=== PATIENT | male | born 1980 | race Caucasian/White ===

== ENCOUNTER → 2017-10-18 13:27 | Outpatient (REF) | payer OTHER, SELFPAY ==
[2017-10-18 15:25] LABS: Cholesterol 179 mg/dL (140-199); Glucose Promotional 100 mg/dL (70-100); HDL Cholesterol 83 mg/dL (40-60); LDL Cholesterol Calculated 69 mg/dL (<100); Triglycerides 135 mg/dL (35-150)
== END ==
LOC: LAB 13:27
PROVIDERS: Family Provider Family Medicine; PCP Family Medicine
DX: Z13.1 Encounter for screening for diabetes mellitus (principal); Z13.220 Encounter for screening for lipoid disorders
CPT/HCPCS: 80061; 82947

== ENCOUNTER → 2017-12-01 07:26 | Outpatient (CLI) | payer OTHER, SELFPAY ==
[2017-12-01 09:53] LABS: Cholesterol 198 mg/dL (140-199); HDL Cholesterol 78 mg/dL (40-60); LDL Cholesterol Calculated 79 mg/dL (<100); Triglycerides 207 mg/dL (35-150)
== END ==
PROVIDERS: Visit Provider Internal Medicine
DX: Z00.00 Encounter for general adult medical examination without abnormal findings (principal)
CPT/HCPCS: 36415; 80061

== ENCOUNTER 2018-01-14 09:54 | Emergency (ER) | payer OTHER, SELFPAY ==
[2018-01-14 10:13] VITALS: BP 150/101; PULSE 97; RESP 18; TEMP 36.8; O2SAT 92; BMI 22.5
--- NOTE | 2018-01-14 10:25 | ED.EXTPRO ---
HPI - Extremity Problem General Chief complaint: Extremity Problem,Nontraumatic Stated complaint: lt ankle swelling,mild pain Time Seen by Provider: 01/14/18 09:59 Source: patient Mode of arrival: ambulatory Limitations: no limitations History of Present Illness HPI Narrative: 37-year-old nonsmoker presents with chief complaint of a small tender swollen ?knot? in his posterior left lower extremity. The patient has a longstanding history of varicose veins and recently had laser treatment and was encouraged to present to the emergency department under the circumstances of increased swelling or pain. The patient denies any redness, warmth or fever. He denies any chest pain or shortness of breath. MD Complaint: extremity pain and extremity swelling Onset (ago): day(s) Pain Consistency: constant Location: left Quality: aching Radiation: none Relieving factors: nothing Exacerbating factors: nothing Associated symptoms: denies other symptoms Related Data Previous Rx's Medication Instructions Recorded epinephrine [EpiPen 2-Gonsalo] 0.3 mg IM SEE INSTRUCTIONS #1 kit 01/06/17 lisinopril 10 mg PO QDAY #90 tab 06/22/17 Allergies Allergy/AdvReac Type Severity Reaction Status Date / Time azithromycin [From ZITHROMAX] Allergy Mild RASH Verified 01/14/18 10:22 venom-honey bee Allergy Mild Verified 01/14/18 10:22 [BEE VENOM (HONEY BEE)] Review of Systems Review of Systems All systems reviewed & are unremarkable except as noted in HPI and below Constitutional Denies chills, Denies fever(s), Denies lethargy and Denies weakness Eyes Denies change in vision, Denies eye discharge, Denies irritation and Denies loss of vision ENT Ears, Nose, Mouth, and Throat: Denies change in voice, Denies neck pain and Denies sore throat Cardiovascular Denies chest pain, Denies irregular heart rhythm, Denies lightheadedness, Denies palpitations, Denies dyspnea, Denies dyspnea on exertion and Denies orthopnea Respiratory Denies cough, Denies dyspnea, Denies dyspnea on exertion and Denies wheezing Gastrointestinal Gastrointestinal: Denies abdominal pain, Denies change in bowel habits, Denies diarrhea, Denies nausea and Denies vomiting Genitourinary Denies hematuria, Denies flank pain, Denies urinary incontinence and Denies urinary urgency Musculoskeletal Reports system reviewed and no additional complaints, except as docu and Denies neck pain Integumentary/Breasts Reports system reviewed and no additional complaints, except as docu, Denies pruritus, Denies erythema, Denies rash and Denies wounds Neurologic Denies confusion, Denies loss of vision and Denies weakness Psychiatric Denies anxiety, Denies confusion, Denies depression, Denies homicidal ideation and Denies suicidal ideation Endocrine Denies palpitations Hematologic/Lymphatic Denies easy bruising Allergic/Immunologic Denies wheezing [facility] Medical History History of varicose veins (Chronic) Hypertension (Chronic 2016) Ocular hypertension (Chronic 2011) Scoliosis (Chronic ~1988) Plantar warts (Resolved 2014) Surgical History Anesthesia (Resolved) History of ankle surgery (Resolved) History of vasectomy (Resolved 07/02/11) Family History Father Pancreatic cancer Grandfather No problems noted. Grandmother No problems noted. Mother No problems noted. Grandfather No problems noted. Sister No problems noted. Social History Smoking Status: Former smoker Exam Narrative Exam Narrative: GEN: AOx3 and in mild distress EYES: Pupils are equal, round, and reactive to light and accommodation. Extraoccular muscles are intact bilaterally. There is no subconjunctival hemorrhage or exudate. CHEST: Lungs are clear to auscultation bilaterally and free of wheezes, rales, or rhonchi. Heart rate is regular rhythm, there are no murmurs, clicks, rubs, or gallops. There is no chest wall tenderness. ABD: Abdomen is soft and nontender. There is no guarding or rebound. Bowel sounds are normal in all 4 quadrants. There is no mass or organomegaly. EXT: Small area of tenderness and swelling on posterior left lower extremity. It is perhaps 2 cm in length and feels rope like, consistent with superficial thrombophlebitis or thrombosed varicosity. There is no redness, warmth or swelling consistent with DVT Full painless ROM of all extremities with no loss of sensation or strength. SKIN: Warm, pink, and dry. No erythema or rash Initial Vital Signs Initial Vital Signs: Vital Signs Temperature 98.2 F 01/14/18 10:13 Pulse Rate 97 H 01/14/18 10:13 Respiratory Rate 18 01/14/18 10:13 Blood Pressure 150/101 H 01/14/18 10:13 Pulse Oximetry 92 01/14/18 10:13 Course Vital Signs - 8 hr 01/14/18 12:33 Pulse Rate 74 Respiratory Rate 16 Blood Pressure [Left Arm] 121/91 H Pulse Oximetry 98 MDM - Extremity (Nontraumatic) Imaging Data Venous US: Radiologist's impression: [address] [address] Ultrasound Report Signed Patient: Darrel Richard LMR#: [id number] : 1980Acct:[id number] Age/Sex: 37 / MDate of Service: 01/14/18 Loc: ED Accession Number: [id number] Procedure: US periph venous low extrem lt Ordering Provider: Clinton Lopez D.O. PROCEDURE: US PERIPH VENOUS LOW EXTREM LT INDICATIONS: pain, swelling, hx varicosities TECHNIQUE: Real-time imaging, as well as color and pulse Doppler interrogation, were performed of the lower extremity deep veins from the inguinal ligament to the popliteal fossa. COMPARISON: None. FINDINGS: The deep veins are normally compressible, and free of intraluminal thrombus. Color and pulse Doppler demonstrate normal phasic intraluminal flow. There is normal augmentation response to distal compression maneuver. Incidental note made of a thrombosed superficial venous varicosity. IMPRESSION: 1. No evidence of deep vein thrombosis involving the left lower extremity. 2. Thrombosed venous varicosity in the superficial system corresponds to clinically palpable lump. Dictated by: Estephania Piña MD, PhD on 01/14/2018 at 11:40 Approved by: Estephania Piña MD, PhD on 01/14/2018 at 11:40 Discharge Plan Departure Patient Disposition: Home Clinical Impression: Superficial thrombosis of leg Discharge Date/Time: 01/14/18 12:52 Interventions: ED Discharge Assessment Last Done: 01/14/18 12:51 Instructions: Phlebitis/DVT (Alternative Therapy) Activity Restrictions/Additional Instructions: *You have been diagnosed with [superficial thrombosed varicosity left leg ] *What to do: *continue to take medications as directed *warm compresses to swollen area can help the thrombosed varicosity resolve *Follow up with your primary care provider in 2-3 days, call for an appointment. Let them know you were seen in the Emergency Department and that we ask that you be seen in follow up *Return to ER if you should have any new, worsening or concerning symptoms Prescriptions: No Action epinephrine [EpiPen 2-Gonsalo] 0.3 MG/0.3 ML auto-injector 0.3 mg IM SEE INSTRUCTIONS Qty: 1 RF: 5 lisinopril 10 MG tablet 10 mg PO QDAY Qty: 90 RF: 3
[2018-01-14 10:27] VITALS: PULSE 92
--- NOTE | 2018-01-14 10:33 | ED_ITS ---
HPI - Extremity Problem General Chief complaint: Extremity Problem,Nontraumatic Stated complaint: lt ankle swelling,mild pain Time Seen by Provider: 01/14/18 09:59 Source: patient Mode of arrival: ambulatory Limitations: no limitations History of Present Illness HPI Narrative: 37-year-old nonsmoker presents with chief complaint of a small tender swollen ?knot? in his posterior left lower extremity. The patient has a longstanding history of varicose veins and recently had laser treatment and was encouraged to present to the emergency department under the circumstances of increased swelling or pain. The patient denies any redness, warmth or fever. He denies any chest pain or shortness of breath. MD Complaint: extremity pain and extremity swelling Onset (ago): day(s) Pain Consistency: constant Location: left Quality: aching Radiation: none Relieving factors: nothing Exacerbating factors: nothing Associated symptoms: denies other symptoms Related Data Previous Rx's Medication Instructions Recorded epinephrine [EpiPen 2-Gonsalo] 0.3 mg IM SEE INSTRUCTIONS #1 kit 01/06/17 lisinopril 10 mg PO QDAY #90 tab 06/22/17 Allergies Allergy/AdvReac Type Severity Reaction Status Date / Time azithromycin [From ZITHROMAX] Allergy Mild RASH Verified 01/14/18 10:22 venom-honey bee Allergy Mild Verified 01/14/18 10:22 [BEE VENOM (HONEY BEE)] Review of Systems Review of Systems All systems reviewed & are unremarkable except as noted in HPI and below Constitutional Denies chills, Denies fever(s), Denies lethargy and Denies weakness Eyes Denies change in vision, Denies eye discharge, Denies irritation and Denies loss of vision ENT Ears, Nose, Mouth, and Throat: Denies change in voice, Denies neck pain and Denies sore throat Cardiovascular Denies chest pain, Denies irregular heart rhythm, Denies lightheadedness, Denies palpitations, Denies dyspnea, Denies dyspnea on exertion and Denies orthopnea Respiratory Denies cough, Denies dyspnea, Denies dyspnea on exertion and Denies wheezing Gastrointestinal Gastrointestinal: Denies abdominal pain, Denies change in bowel habits, Denies diarrhea, Denies nausea and Denies vomiting Genitourinary Denies hematuria, Denies flank pain, Denies urinary incontinence and Denies urinary urgency Musculoskeletal Reports system reviewed and no additional complaints, except as docu and Denies neck pain Integumentary/Breasts Reports system reviewed and no additional complaints, except as docu, Denies pruritus, Denies erythema, Denies rash and Denies wounds Neurologic Denies confusion, Denies loss of vision and Denies weakness Psychiatric Denies anxiety, Denies confusion, Denies depression, Denies homicidal ideation and Denies suicidal ideation Endocrine Denies palpitations Hematologic/Lymphatic Denies easy bruising Allergic/Immunologic Denies wheezing [facility], [facility] Medical History History of varicose veins (Chronic) Hypertension (Chronic 2016) Ocular hypertension (Chronic 2011) Scoliosis (Chronic ~1988) Plantar warts (Resolved 2014) Surgical History Anesthesia (Resolved) History of ankle surgery (Resolved) History of vasectomy (Resolved 07/02/11) Family History Father Pancreatic cancer Grandfather No problems noted. Grandmother No problems noted. Mother No problems noted. Grandfather No problems noted. Sister No problems noted. Social History Smoking Status: Former smoker Exam Narrative Exam Narrative: GEN: AOx3 and in mild distress EYES: Pupils are equal, round, and reactive to light and accommodation. Extraoccular muscles are intact bilaterally. There is no subconjunctival hemorrhage or exudate. CHEST: Lungs are clear to auscultation bilaterally and free of wheezes, rales, or rhonchi. Heart rate is regular rhythm, there are no murmurs, clicks, rubs, or gallops. There is no chest wall tenderness. ABD: Abdomen is soft and nontender. There is no guarding or rebound. Bowel sounds are normal in all 4 quadrants. There is no mass or organomegaly. EXT: Small area of tenderness and swelling on posterior left lower extremity. It is perhaps 2 cm in length and feels rope like, consistent with superficial thrombophlebitis or thrombosed varicosity. There is no redness, warmth or swelling consistent with DVT Full painless ROM of all extremities with no loss of sensation or strength. SKIN: Warm, pink, and dry. No erythema or rash Initial Vital Signs Initial Vital Signs: Vital Signs Temperature 98.2 F 01/14/18 10:13 Pulse Rate 97 H 01/14/18 10:13 Respiratory Rate 18 01/14/18 10:13 Blood Pressure 150/101 H 01/14/18 10:13 Pulse Oximetry 92 01/14/18 10:13 Course Vital Signs - 8 hr 01/14/18 12:33 Pulse Rate 74 Respiratory Rate 16 Blood Pressure [Left Arm] 121/91 H Pulse Oximetry 98 MDM - Extremity (Nontraumatic) Imaging Data Venous US: Radiologist's impression: [address] [address] Ultrasound Report Signed Patient: Darrel Richard LMR#: [id number] : 1980Acct:[id number] Age/Sex: 37 / MDate of Service: 01/14/18 Loc: ED Accession Number: [id number] Procedure: US periph venous low extrem lt Ordering Provider: Clinton Lopez D.O. PROCEDURE: US PERIPH VENOUS LOW EXTREM LT INDICATIONS: pain, swelling, hx varicosities TECHNIQUE: Real-time imaging, as well as color and pulse Doppler interrogation, were performed of the lower extremity deep veins from the inguinal ligament to the popliteal fossa. COMPARISON: None. FINDINGS: The deep veins are normally compressible, and free of intraluminal thrombus. Color and pulse Doppler demonstrate normal phasic intraluminal flow. There is normal augmentation response to distal compression maneuver. Incidental note made of a thrombosed superficial venous varicosity. IMPRESSION: 1. No evidence of deep vein thrombosis involving the left lower extremity. 2. Thrombosed venous varicosity in the superficial system corresponds to clinically palpable lump. Dictated by: Estephania Piña MD, PhD on 01/14/2018 at 11:40 Approved by: Estephania Piña MD, PhD on 01/14/2018 at 11:40 Discharge Plan Departure Patient Disposition: Home Clinical Impression: Superficial thrombosis of leg Discharge Date/Time: 01/14/18 12:52 Interventions: ED Discharge Assessment Last Done: 01/14/18 12:51 Instructions: Phlebitis/DVT (Alternative Therapy) Activity Restrictions/Additional Instructions: *You have been diagnosed with [superficial thrombosed varicosity left leg ] *What to do: *continue to take medications as directed *warm compresses to swollen area can help the thrombosed varicosity resolve *Follow up with your primary care provider in 2-3 days, call for an appointment. Let them know you were seen in the Emergency Department and that we ask that you be seen in follow up *Return to ER if you should have any new, worsening or concerning symptoms Prescriptions: No Action epinephrine [EpiPen 2-Gonsalo] 0.3 MG/0.3 ML auto-injector 0.3 mg IM SEE INSTRUCTIONS Qty: 1 RF: 5 lisinopril 10 MG tablet 10 mg PO QDAY Qty: 90 RF: 3
[2018-01-14 12:33] VITALS: BP 121/91; PULSE 74; RESP 16; O2SAT 98
== END 2018-01-14 12:52 | disposition home or self-care (01) ==
PROVIDERS: Emergency Provider Emergency Medicine; Family Provider Family Medicine; PCP Family Medicine
DX: I82.812 Embolism and thrombosis of superficial veins of left lower extremity (principal)
CPT/HCPCS: 93971; 99282; 99284

== ENCOUNTER → 2018-07-25 10:37 | Outpatient (CLI) | payer SELFPAY | PROVIDERS: Family Provider Family Medicine; PCP Family Medicine; Visit Provider Physician Assistant | DX: J02.9 Acute pharyngitis, unspecified (principal) | CPT/HCPCS: 87070 ==

== ENCOUNTER → 2018-09-27 08:57 | Outpatient (CLI) | payer OTHER, SELFPAY ==
[2018-09-27 09:23] LABS: Add Manual Diff / Slide Review NO; Basophils Absolute Auto 0 /uL (0-100); Basophils Percent Auto 0.8 % (0-2); Eosinophils Absolute Auto 300 /uL (0-450); Eosinophils Percent Auto 7.4 % (2-4); Hematocrit 45.4 % (41-53); Hemoglobin 15.9 g/dL (13.5-17.5); Lymphocytes Absolute Auto 1200 /uL (1100-4500); Lymphocytes Percent Auto 25.8 % (25-40); Mean Corpuscular HGB Conc 35.1 % (30-36); Mean Corpuscular Hemoglobin 31.6 PG (26-34); Monocytes Absolute Auto 500 /uL (0-900); Monocytes Percent Auto 10.1 % (3-14); Neutrophils Absolute Auto 2600 /uL (1500-7000); Neutrophils Percent Auto 55.9 % (50-75); Platelet Count 136 X10^3/uL (150-400); Red Blood Cell Count 5.05 X10^6/uL (4.5-5.9); Red Cell Distribution Width 12.5 % (11.6-14.8); White Blood Cell Count 4.7 X10^3/uL (4.5-11.0)
[2018-09-27 09:51] LABS: Alanine Aminotransferase 22 IU/L (21-72); Albumin 4.2 g/dL (3.5-5.0); Albumin Globulin Ratio 1.4 (1.0-2.8); Alkaline Phosphatase 55 U/L (38-126); Aspartate Aminotransferase 34 IU/L (17-59); Bilirubin Total 0.5 mg/dL (0.2-1.3); Blood Urea Nitrogen 16 mg/dL (9-20); Calcium 9.2 mg/dL (8.4-10.2); Carbon Dioxide 30 mmol/L (22-32); Chloride 104 mmol/L (98-107); Cholesterol 209 mg/dL (140-199); Estimated Glomerular Filt Rate > 60.0 mL/min (>60); Glucose 103 mg/dL (70-100); HDL Cholesterol 79 mg/dL (40-60); HEMOLYSIS 21 (0-50); LDL Cholesterol Calculated 92 mg/dL (<100); Potassium 4.1 mmol/L (3.4-5.1); Sodium 140 mmol/L (137-145); Total Protein 7.2 g/dL (6.3-8.2); Triglycerides 188 mg/dL (35-150)
== END ==
PROVIDERS: Visit Provider Internal Medicine
DX: D69.6 Thrombocytopenia, unspecified (principal); I10 Essential (primary) hypertension; Z13.1 Encounter for screening for diabetes mellitus; Z13.6 Encounter for screening for cardiovascular disorders
CPT/HCPCS: 36415; 80053; 80061; 85025

== ENCOUNTER → 2019-05-17 08:07 | Outpatient (CLI) | payer OTHER, SELFPAY ==
[2019-05-17 08:33] LABS: Add Manual Diff / Slide Review NO; Basophils Absolute Auto 0 /uL (0-100); Basophils Percent Auto 0.5 % (0-2); Eosinophils Absolute Auto 300 /uL (0-450); Eosinophils Percent Auto 6.1 % (2-4); Hemoglobin 15.7 g/dL (13.5-17.5); Lymphocytes Absolute Auto 900 /uL (1100-4500); Lymphocytes Percent Auto 20.5 % (25-40); Mean Corpuscular HGB Conc 34.2 % (30-36); Mean Corpuscular Hemoglobin 31.5 PG (26-34); Mean Corpuscular Volume 92.1 fL (80-100); Monocytes Absolute Auto 300 /uL (0-900); Monocytes Percent Auto 6.4 % (3-14); Neutrophils Absolute Auto 2900 /uL (1500-7000); Neutrophils Percent Auto 66.5 % (50-75); Platelet Count 126 X10^3/uL (150-400); Red Blood Cell Count 4.99 X10^6/uL (4.5-5.9); Red Cell Distribution Width 12.5 % (11.6-14.8); White Blood Cell Count 4.4 X10^3/uL (4.5-11.0)
[2019-05-17 08:43] LABS: Alanine Aminotransferase 27 IU/L (<50); Albumin 4.3 g/dL (3.5-5.0); Albumin Globulin Ratio 1.4 (1.0-2.8); Alkaline Phosphatase 54 U/L (38-126); Aspartate Aminotransferase 39 IU/L (17-59); Bilirubin Total 0.4 mg/dL (0.2-1.3); Blood Urea Nitrogen 18 mg/dL (9-20); Calcium 9.3 mg/dL (8.4-10.2); Carbon Dioxide 29 mmol/L (22-32); Chloride 104 mmol/L (98-107); Cholesterol 235 mg/dL (140-199); Estimated Glomerular Filt Rate > 60.0 mL/min (>60); Globulin 3.1 g/dL (1.7-4.1); Glucose 112 mg/dL (70-100); HDL Cholesterol 65 mg/dL (40-60); HEMOLYSIS < 15 (0-50); LDL Cholesterol Calculated 116 mg/dL (<100); Potassium 4.3 mmol/L (3.4-5.1); Sodium 139 mmol/L (137-145); Total Protein 7.4 g/dL (6.3-8.2); Triglycerides 268 mg/dL (35-150)
== END ==
PROVIDERS: PCP Internal Medicine; Referring Provider Internal Medicine; Visit Provider Internal Medicine
DX: D69.6 Thrombocytopenia, unspecified (principal); I10 Essential (primary) hypertension
CPT/HCPCS: 36415; 80053; 80061; 85025

== ENCOUNTER → 2020-05-15 08:23 | Outpatient (CLI) | payer OTHER, SELFPAY ==
[2020-05-15 10:01] LABS: BUN Creatinine Ratio 18.6 (6-22); Blood Urea Nitrogen 16 mg/dL (9-20); Calcium 9.4 mg/dL (8.4-10.2); Carbon Dioxide 32 mmol/L (22-32); Chloride 103 mmol/L (98-107); Estimated Glomerular Filt Rate > 60.0 mL/min (>60); Glucose 98 mg/dL (70-100); HEMOLYSIS < 15 (0-50); Potassium 3.9 mmol/L (3.4-5.1); Sodium 139 mmol/L (137-145)
== END ==
PROVIDERS: PCP Internal Medicine; Referring Provider Internal Medicine; Visit Provider Internal Medicine
DX: I10 Essential (primary) hypertension (principal)
CPT/HCPCS: 36415; 80048

== ENCOUNTER → 2020-08-04 09:20 | Outpatient (CLI) | payer OTHER, SELFPAY ==
[2020-08-04 13:57] LABS: COVID19 -Nasal RAPID Negative (Negative)
== END ==
PROVIDERS: PCP Internal Medicine; Visit Provider Surgery
DX: Z01.812 Encounter for preprocedural laboratory examination (principal); Z20.822 Contact with and (suspected) exposure to COVID-19
CPT/HCPCS: 87635; C9803

== ENCOUNTER 2020-08-05 11:51 | Day surgery (SDC) | payer OTHER, SELFPAY ==
[2020-08-05] VITALS (7 sets, daily range): BP systolic 105–135; BP diastolic 63–96; PULSE 87–100; RESP 12–16; TEMP 36.6–37.1; O2SAT 95–100; BMI 23.1
--- NOTE | 2020-08-05 | PATH_ITS ---
[facility] Accession Number: [id number] . 01 Material submitted: . body - POLYP @89CM . 02 Diagnosis: Colon, Polyp at 89 cm, Biopsy: Tubular adenoma. MRV 08/11/2020 1116 Local . 02 Electronically signed: . Kathia Cervantes MD, Pathologist NPI- [id number] . 01 Gross description: . The specimen is received in formalin, labeled polyp at 89 cm and consists of multiple patricio-pink fragments of soft tissue measuring 1.0 x 0.6 x 0.2 cm in aggregate. The specimen is entirely submitted in cassette A1. ([id number]) /MRV 08/06/2020 1444 Local . 02 Pathologist provided ICD-10: D12.6 . 02 CPT . 256913 Performed at: 01 [facility] [address] [facility] [place], [place], [place] [id number] MD Inderjit Bernard MD Phone: [phone] Performed at: 02 [facility] [address] [place], [place] [id number] MD Kathia Cervantes MD Phone: [phone]
[2020-08-05] MEDS: SODIUM CHLORIDE 0.9% 1,000 ML 200 ML IV (12:35)
--- NOTE | 2020-08-05 12:57 | PM.HP.1 ---
History of Present Illness History of Present Illness Date Patient Seen: 08/05/20 Time Patient Seen: 12:57 Chief complaint: SCREENING COLONOSCOPY Narrative: This is a 40 yo man who is here for a high risk screening colonoscopy. He has an extensive family history with his mother having advanced polyps requiring colon resection, and his younger sister being diagnosed with polyps on a recent colonoscopy. He is here for his first screening. ROS: Thirteen system review is otherwise negative other than as mentioned below and in HPI. PE: GENERAL: Well groomed and cooperative. Appears stated age. Answers questions promptly and appropriately. Vital signs noted. HENT: Normocephalic, atraumatic. Hearing intact. EYES: Conjunctiva pink, sclera white, no periorbital swelling. CARDIOVASCULAR: Regular rate. No pedal edema. RESPIRATORY: Non-tachypneic, breathing comfortably on room air. GASTROINTESTINAL: Abdomen soft and non-distended GENITALURINARY: No flank tenderness. MUSCULOSKELETAL: Equal tone and mass bilaterally. SKIN: Warm, dry, soft, appropriate color for ethnicity. No other lesions, rashes, or wounds. NEURO: Alert and Oriented X 3. No gross sensory deficits, or cognitive issues. PSYCH: Appropriate affect and mood. Patient History Medical History (Updated 08/05/20 @ 12:59 by Ofe Diaz MD) Absent foot pulse Anxiety (08/28/15) Essential hypertension (08/28/15) History of varicose veins Ocular hypertension (2011) Plantar warts (2014) Scoliosis (~1988) Thrombocytopenia Venous insufficiency Venous stasis ulcer Surgical History Anesthesia History of ankle surgery History of vasectomy (07/02/11) Family & Social History Family History Father Pancreatic cancer Grandfather No problems noted. Grandmother No problems noted. Mother No problems noted. Grandfather No problems noted. Sister No problems noted. Social History: household members spouse Tobacco & Substance use: Smoking Status Former smoker alcohol intake frequency a few times a week Substance Use Type does not use Meds Home Medications and Allergies Home Medications Medication Instructions Recorded Confirmed Type aspirin 81 mg tablet,delayed 81 mg PO DAILY 01/25/18 08/05/20 History release uliyfhdb-pgaseayl-ujlax acid 400 1 tab PO DAILY tab 01/25/18 08/05/20 History mcg-vit K 20 mcg-lycop 300 mcg tablet omega-3 fatty acids 1,000 mg 1,000 mg PO DAILY 08/21/18 08/05/20 History capsule epinephrine 0.3 mg/0.3 mL 0.3 mg IM .COMPLEX #2 each 03/12/20 08/05/20 Rx injection, auto-injector brimonidine 0.2 %-timolol 0.5 % 1 drp EYE-BOTH BID ml 05/19/20 08/05/20 History eye drops lisinopril 10 mg tablet 10 mg PO QDAY #90 tab 07/28/20 08/05/20 Rx Allergies Allergy/AdvReac Type Severity Reaction Status Date / Time venom-honey bee Allergy Severe Anaphylaxis Verified 07/19/20 08:42 [BEE VENOM (HONEY BEE)] azithromycin [From ZITHROMAX] Allergy Mild RASH Verified 07/19/20 08:42 Exam Vital Signs (past 8 hours): - 08/05/20 12:33 Temperature 98.0 F Pulse Rate 100 H Respiratory Rate 16 Blood Pressure 135/96 H Pulse Oximetry 100 Oxygen Delivery Method Room Air Assessment & Plan Assessment and plan (1) Family history of colonic polyps: Status: Acute Assessment & Plan narrative: Risks and benefits of screening colonoscopy and possible polypectomy were discussed with the patient including risk of bleeding, perforation, need for additional procedures, risks of anesthesia. The patient desires to proceed with the colonoscopy procedure. COVID-19 COVID-19 status: Negative Result date/Date tested (Pos, Neg/Pending): 08/04/20 Time Spent With Patient Time with patient: 15-24 minutes Quality VTE Deep Vein Thrombosis/Pulmonary Embolism Present on Admission: No
--- NOTE | 2020-08-05 13:04 | PM.OP.ENDO ---
Operative Date/Time/Diagnoses Date of procedure: 08/05/20 Time of procedure: 13:04 Pre-op diagnosis: High risk family history Post-op diagnosis: other (Single small polyp in the ascending colon) Procedure & Clinicians Study performed: Colonoscopy Procedural sedation performed by the endoscopist Polypectomy with Jumbo forceps Same procedure as scheduled: Yes Indications: High risk family history Surgeon: Ofe Diaz Procedure Notes SCOAP/Timeout: Performed Procedure in detail: The patient was brought to the room and placed in left lateral decubitus position with all bony prominences padded. A time-out was performed and then the patient was given procedural sedation starting with 4 mg of Versed an100] mcg of fentanyl. An additional 6 mg of Versed and 100 micro g of fentanyl were given during the course of the procedure. Vitals were monitored throughout the procedure and remained stable. Once adequately sedated, the procedure was begun. A rectal exam was performed revealing [no abnormalities. The colonoscope was then introduced to the rectum and advanced to the cecum in the usual fashion.]The cecum was identified by the appendiceal orifice, the mucosal tri-fold, and the ileocecal valve. The scope was then retracted while rotating side to side and examining each mucosal fold. A small polyp was removed from the ascending colon at 89 cm using Jumbo forceps. [ At the conclusion of the procedure retroflexion was performed and small grade 1-2 internal hemorrhoids without stigmata of bleeding were seen. The scope was then withdrawn from the rectum the procedure was concluded. The patient tolerated the procedure well and was transferred to the PACU in stable condition. Scope withdrawal time: 9 Sedation minutes: 24 Findings: polyp Specimen(s): other (Single polyp) Complications: none Impression: Small adenomatous/precancerous appearing polyp Post-procedure Recommendations: Colonscopy in 5 years (Due to family history) Follow up: as needed Disposition: PACU
[2020-08-05] MEDS: fentaNYL 250 MCG/5 ML INJ IV (13:12)
[2020-08-05] MEDS: MIDAZOLAM 5 MG/5 ML VIAL IV (13:12)
== END 2020-08-05 14:10 | disposition home or self-care (01) ==
PROVIDERS: PCP Internal Medicine; Referring Provider Surgery; Visit Provider Surgery
PROC: 0DJD8ZZ Inspection of Lower Intestinal Tract, Via Natural or Artificial Opening Endoscopic (ICD-10-PCS; CPT 45378; principal; 2020-08-05 13:00)
DX: Z12.11 Encounter for screening for malignant neoplasm of colon (principal); Z83.71 Family history of colonic polyps; K64.0 First degree hemorrhoids; I10 Essential (primary) hypertension; F41.9 Anxiety disorder, unspecified; D12.6 Benign neoplasm of colon, unspecified
CPT/HCPCS: 45380; 99152; J2250; J3010

== ENCOUNTER → 2021-07-27 07:59 | Outpatient (CLI) | payer OTHER, SELFPAY ==
[2021-07-27 10:14] LABS: Add Manual Diff / Slide Review NO; Basophils Absolute Auto 0 /uL (0-100); Basophils Percent Auto 0.4 % (0-2); Eosinophils Absolute Auto 300 /uL (0-450); Eosinophils Percent Auto 5.4 % (2-4); Hematocrit 47.4 % (41-53); Lymphocytes Absolute Auto 1600 /uL (1100-4500); Lymphocytes Percent Auto 31.7 % (25-40); Mean Corpuscular HGB Conc 33.8 % (30-36); Mean Corpuscular Hemoglobin 30.6 PG (26-34); Mean Corpuscular Volume 90.6 fL (80-100); Monocytes Absolute Auto 400 /uL (0-900); Monocytes Percent Auto 7.6 % (3-14); Neutrophils Absolute Auto 2800 /uL (1500-7000); Neutrophils Percent Auto 54.9 % (50-75); Platelet Count 133 X10^3/uL (150-400); Red Blood Cell Count 5.23 X10^6/uL (4.5-5.9); White Blood Cell Count 5.1 X10^3/uL (4.5-11.0)
[2021-07-27 10:31] LABS: Alanine Aminotransferase 35 IU/L (<50); Albumin 4.5 g/dL (3.5-5.0); Albumin Globulin Ratio 1.5 (1.0-2.8); Alkaline Phosphatase 61 U/L (38-126); Aspartate Aminotransferase 39 IU/L (17-59); BUN Creatinine Ratio 17.4 (6-22); Bilirubin Total 0.6 mg/dL (0.2-1.3); Blood Urea Nitrogen 15 mg/dL (9-20); Calcium 9.2 mg/dL (8.4-10.2); Carbon Dioxide 29 mmol/L (22-32); Chloride 106 mmol/L (98-107); Cholesterol 274 mg/dL (140-199); Estimated Glomerular Filt Rate > 60 mL/min (>60); Glucose 89 mg/dL (70-100); HDL Cholesterol 59 mg/dL (40-60); HEMOLYSIS < 15 (0-50); LDL Cholesterol Calculated 143 mg/dL (<100); Potassium 4.1 mmol/L (3.4-5.1); Sodium 141 mmol/L (137-145); Total Protein 7.5 g/dL (6.3-8.2); Triglycerides 361 mg/dL (35-150)
== END ==
PROVIDERS: PCP Internal Medicine; Referring Provider Internal Medicine; Visit Provider Internal Medicine
DX: D69.6 Thrombocytopenia, unspecified (principal); G62.9 Polyneuropathy, unspecified; I10 Essential (primary) hypertension; Z13.220 Encounter for screening for lipoid disorders
CPT/HCPCS: 36415; 80053; 80061; 85025

== ENCOUNTER → 2021-11-05 10:43 | Outpatient (CLI) | payer OTHER, SELFPAY ==
[2021-11-05 11:32] LABS: Add Manual Diff / Slide Review NO; Basophils Absolute Auto 0 /uL (0-100); Basophils Percent Auto 0.4 % (0-2); Eosinophils Absolute Auto 200 /uL (0-450); Eosinophils Percent Auto 4.1 % (2-4); Hematocrit 47.6 % (41-53); Hemoglobin 16.2 g/dL (13.5-17.5); Lymphocytes Absolute Auto 1000 /uL (1100-4500); Lymphocytes Percent Auto 21.7 % (25-40); Mean Corpuscular HGB Conc 33.9 % (30-36); Mean Corpuscular Hemoglobin 30.8 PG (26-34); Mean Corpuscular Volume 90.6 fL (80-100); Monocytes Absolute Auto 300 /uL (0-900); Monocytes Percent Auto 7.2 % (3-14); Neutrophils Absolute Auto 3000 /uL (1500-7000); Neutrophils Percent Auto 66.6 % (50-75); Platelet Count 143 X10^3/uL (150-400); Red Blood Cell Count 5.26 X10^6/uL (4.5-5.9); Red Cell Distribution Width 13.1 % (11.6-14.8); White Blood Cell Count 4.5 X10^3/uL (4.5-11.0)
[2021-11-05 11:50] LABS: Erythrocyte Sedimentation Rate 4 MM/HR (0-15)
[2021-11-05 12:47] LABS: Alanine Aminotransferase 27 IU/L (<50); Albumin 4.4 g/dL (3.5-5.0); Albumin Globulin Ratio 1.4 (1.0-2.8); Alkaline Phosphatase 68 U/L (38-126); Aspartate Aminotransferase 36 IU/L (17-59); BUN Creatinine Ratio 16.5 (6-22); Bilirubin Total 0.5 mg/dL (0.2-1.3); Blood Urea Nitrogen 16 mg/dL (9-20); C-Reactive Protein Quant 0.5 mg/dL (<1.0); Calcium 9.3 mg/dL (8.4-10.2); Carbon Dioxide 30 mmol/L (22-32); Chloride 103 mmol/L (98-107); Estimated Glomerular Filt Rate > 60 mL/min (>60); Globulin 3.2 g/dL (1.7-4.1); Glucose 90 mg/dL (70-100); HEMOLYSIS < 15 (0-50); Potassium 4.2 mmol/L (3.4-5.1); Sodium 139 mmol/L (137-145); Total Protein 7.6 g/dL (6.3-8.2)
[2021-11-05 13:07] LABS: Free T4, Direct Thyroxine 0.91 ng/dL (0.78-2.19)
[2021-11-05 13:18] LABS: Thyroid Stimulating Hormone 0.876 uIU/mL (0.47-4.68)
== END ==
PROVIDERS: PCP Internal Medicine; Referring Provider Internal Medicine; Visit Provider Internal Medicine
DX: D69.6 Thrombocytopenia, unspecified (principal); I10 Essential (primary) hypertension; R00.0 Tachycardia, unspecified; R53.83 Other fatigue
CPT/HCPCS: 36415; 80053; 84439; 84443; 85025; 85651; 86140

== ENCOUNTER 2023-03-19 13:14 | Emergency (ER) | payer OTHER, SELFPAY ==
[2023-03-19 13:28] VITALS: BP 172/95; PULSE 86; RESP 14; TEMP 36.7; O2SAT 98; BMI 25.5
--- NOTE | 2023-03-19 13:50 | DI.CT.S_ITS ---
PROCEDURE: CT ANGIO HEAD AND NECK INDICATIONS: Left eye visual disturbance, h/o ocular htn, now dizzy padron TECHNIQUE: After the administration of intravenous contrast, 1 mm thick sections acquired from the aortic arch through the [place]. 3-dimensional pedhomt-vkfnlgbgj-mogobbujhb (MIP) and/or volume rendering reformats were acquired of the central intracranial vasculature and neck separately. For radiation dose reduction, the following was used: automated exposure control, adjustment of mA and/or kV according to patient size. COMPARISON: None. FINDINGS: Image quality: Diagnostic. BRAIN: CSF spaces: Ventricles are normal in size and shape. Basal cisterns are patent. No extra-axial fluid collections. Brain: No significant abnormality of the brain can be seen. Skull and face: Calvarium and facial bones appear intact, without suspicious lesions. In this patient with this given history, scrutiny is given to the orbits. No significant abnormality of the orbits or globes can be seen. Sinuses: Sinuses and mastoids are clear. HEAD CT ANGIOGRAPHY: Anterior circulation: Intracranial internal carotid arteries are normal in size and flow. The flow within the paired anterior cerebral arteries is normal and symmetric. The flow within the middle cerebral arteries is normal and symmetric. The anterior communicating artery is seen. No aneurysms are seen. The superior ophthalmic arteries appear unremarkable and symmetric. Posterior circulation: Note is made of bilateral type origins of the posterior cerebral arteries, with an associated diminutive basilar artery. The flow within the posterior cerebral arteries is normal and symmetric. The distal vertebral arteries are overall small in size, yet otherwise unremarkable. No aneurysms are seen. NECK CT ANGIOGRAPHY: Carotid system: The great vessels demonstrate a conventional anatomy as they arise from the aortic arch. The origins of the common carotid arteries appear patent. The common carotid arteries demonstrate normal caliber and courses. The bifurcation regions are both widely patent. The internal carotid arteries demonstrate normal calibers and courses. Posterior circulation: The origins of the vertebral arteries both appear widely patent. The more superior extracranial portions of both vertebral arteries also demonstrate normal courses and calibers. They join to form a normal appearing basilar artery. Soft tissues: Visualized neck soft tissues demonstrate no suspicious abnormalities. Bones: No suspicious bony lesions. Visualized cervical spine appears normally aligned. IMPRESSION: No significant intracranial arterial abnormality is seen. No significant abnormality of the superior ophthalmic arteries can be seen. No significant abnormality of the globes or orbits can be seen. Within the arteries of the neck, no hemodynamically significant stenosis can be seen. Any quantitative measurements of stenosis were performed using NASCET criteria. Dictated by: Derian Strange M.D. on 03/19/2023 at 13:15 Approved by: Derian Strange M.D. on 03/19/2023 at 13:19
[2023-03-19 14:13] LABS: INR 1.1 (0.9-1.3)
[2023-03-19 14:15] LABS: Add Manual Diff / Slide Review NO; Basophils Absolute Auto 100 /uL (0-100); Basophils Percent Auto 0.7 % (0-2); Eosinophils Absolute Auto 200 /uL (0-450); Eosinophils Percent Auto 3.4 % (2-4); Hematocrit 45.7 % (41-53); Hemoglobin 15.8 g/dL (13.5-17.5); Lymphocytes Absolute Auto 1400 /uL (1100-4500); Lymphocytes Percent Auto 20.8 % (25-40); Mean Corpuscular HGB Conc 34.5 % (30-36); Mean Corpuscular Hemoglobin 31.7 PG (26-34); Mean Corpuscular Volume 91.7 fL (80-100); Monocytes Absolute Auto 500 /uL (0-900); Monocytes Percent Auto 7.9 % (3-14); Neutrophils Absolute Auto 4700 /uL (1500-7000); Neutrophils Percent Auto 67.2 % (50-75); Platelet Count 159 X10^3/uL (150-400); Red Blood Cell Count 4.98 X10^6/uL (4.5-5.9); Red Cell Distribution Width 12.4 % (11.6-14.8); White Blood Cell Count 6.9 X10^3/uL (4.5-11.0)
[2023-03-19 14:29] LABS: Alanine Aminotransferase 34 IU/L (<50); Albumin 4.4 g/dL (3.5-5.0); Albumin Globulin Ratio 1.4 (1.0-2.8); Alkaline Phosphatase 67 U/L (38-126); Aspartate Aminotransferase 41 IU/L (17-59); BUN Creatinine Ratio 17.9 (6-22); Bilirubin Total 0.9 mg/dL (0.2-1.3); Blood Urea Nitrogen 15 mg/dL (9-20); Calcium 9.4 mg/dL (8.4-10.2); Carbon Dioxide 27 mmol/L (22-32); Chloride 103 mmol/L (98-107); Estimated Glomerular Filt Rate > 60 mL/min (>60); Globulin 3.2 g/dL (1.7-4.1); Glucose 106 mg/dL (70-100); HEMOLYSIS < 15 (0-50); Lipase 92 U/L (23-300); Potassium 4.1 mmol/L (3.4-5.1); Sodium 137 mmol/L (137-145); Total Protein 7.6 g/dL (6.3-8.2)
--- NOTE | 2023-03-19 15:24 | ED.EYEPROB ---
HPI - Eye Problem General Chief complaint: Eye Problems Stated complaint: vision problems, dizzy spells Time Seen by Provider: 03/19/23 15:13 Source: patient Mode of arrival: Ambulatory History of Present Illness HPI Narrative: Patient 42-year-old history of hypertension with chronic ophthalmology hypertension he is on Combigan for a number of years. However he started having some shoes over the last month or weak he was seen by Ophthalmology again last week started on Latanoprost. He was seen by them a couple days ago for follow-up. He reports that he has a spot in his left eye. He says that colors are dim light is in today he is noticing that lines are weakly and not straight. He has no eye pain. He feels like his eye is fatigued. He has no numbness tingling weakness. He says that his eyes have been stable for a number of years. He is followed by Dr. Rosario Infante with [facility]. Related Data Home Medications Medication Instructions Recorded Confirmed aspirin 81 mg tablet,delayed 81 mg PO DAILY 01/25/18 03/19/23 release (Adult Aspirin Regimen) iekajeci-ogdsnizl-wivyz acid 400 1 tab PO DAILY 01/25/18 03/19/23 mcg-vit K 20 mcg-lycop 300 mcg tablet (One-A-Day Men's Multivitamin) brimonidine 0.2 %-timolol 0.5 % 1 drp EYE-BOTH BID 05/19/20 03/19/23 eye drops (Combigan) latanoprost 0.005 % eye drops 1 drp EYE-BOTH ONCE PM 03/19/23 03/19/23 Previous Rx's Medication Instructions Recorded epinephrine 0.3 mg/0.3 mL 0.3 mg (0.3 mL) IM .COMPLEX #2 ea 02/23/21 injection, auto-injector (EpiPen 2-Gonsalo) lisinopril 10 mg tablet 10 mg PO QDAY #90 tabs 12/09/22 Allergies Allergy/AdvReac Type Severity Reaction Status Date / Time venom-honey bee Allergy Severe Anaphylaxis Verified 03/19/23 13:34 [BEE VENOM (HONEY BEE)] azithromycin [From ZITHROMAX] Allergy Mild RASH Verified 03/19/23 13:34 Patient History Medical History Thrombocytopenia Absent foot pulse Venous stasis ulcer Venous insufficiency Ocular hypertension (2012) Plantar warts (2015) Scoliosis (~1988) History of varicose veins Essential hypertension (08/28/15) Anxiety (08/28/15) Surgical History Anesthesia History of ankle surgery History of vasectomy (07/02/11) Family History Father Pancreatic cancer Grandfather No problems noted. Grandmother No problems noted. Mother No problems noted. Grandfather No problems noted. Sister No problems noted. Social History household members: spouse Smoking Status: Former smoker Smoking Status: Former smoker alcohol intake frequency: a few times a week Substance Use Type: does not use Exam Initial Vital Signs Initial Vital Signs: Vital Signs Temperature 98.1 F 03/19/23 13:28 Pulse Rate 86 03/19/23 13:28 Respiratory Rate 14 03/19/23 13:28 Blood Pressure 172/95 H 03/19/23 13:28 Pulse Oximetry 98 03/19/23 13:28 Oxygen Delivery Method Room Air 03/19/23 13:28 GENERAL: Alert well-appearing 38 male HEENT: Head atraumatic,EOMI, pupils reactive, [Right/Left] right eye pressure 16mmHg good red reflex extraocular movements intact no retinal detachment Left: 17mmhg good red reflex extraocular movements intact ultrasound does not show evidence of retinal detachment externa non erythematous no edema CARDIOVASCULAR: Regular rate and rhythm without murmurs, rubs or gallops. RESPIRATORY: Breath sounds equal bilaterally, no wheezes rales or rhonchi. ABDOMEN: Soft, nontender. Normoactive bowel sounds all 4 quadrants. No guarding or rebound. EXTREMITIES: Normal range of motion, no clubbing or edema. Neurovascularly intact NEUROLOGICAL: Alert and oriented x4.Normal gait and speech. SKIN: Warm, dry, no laceration, no petechiae, no rashes or lesions. Course Orders Ordered: ED Orders 03/19/23 13:50 CT angio head and neck Stat 03/19/23 13:57 Complete Blood Count AUTO DIFF Stat Comprehensive Metabolic Panel Stat Lipase Stat Prothrombin Time INR Stat Discontinued Medications Proparacaine HCl (Proparacaine 0.5% Ophth Shayy) 1 drops EYE-BOTH NOW ONE Stop: 03/19/23 15:25 Last Admin: 03/19/23 15:35 Dose: 1 drop Documented By: DORINA Vital Signs Vital signs: Vital Signs - 8 hr 03/19/23 13:28 03/19/23 16:38 Temperature 98.1 F Pulse Rate 86 90 Respiratory Rate 14 20 Blood Pressure 172/95 H 139/88 Pulse Oximetry 98 99 Oxygen Delivery Method Room Air Room Air MDM - Eye Problem Lab Data 03/19/23 13:57 03/19/23 13:57 Labs: Lab Results 03/19/23 Range/Units 13:57 WBC 6.9 (4.5-11.0) X10^3/uL RBC 4.98 (4.5-5.9) X10^6/uL Hgb 15.8 (13.5-17.5) g/dL Hct 45.7 (41-53) % MCV 91.7 (80-100) fL MCH 31.7 (26-34) PG MCHC 34.5 (30-36) % RDW 12.4 (11.6-14.8) % Plt Count 159 (150-400) X10^3/uL Neut % (Auto) 67.2 (50-75) % Lymph % (Auto) 20.8 L (25-40) % [place] % (Auto) 7.9 (3-14) % Eos % (Auto) 3.4 (2-4) % Baso % (Auto) 0.7 (0-2) % Neut # (Auto) 4700 (8113-1544) /uL Lymph # (Auto) 1400 (7672-3770) /uL [place] # (Auto) 500 (0-900) /uL Eos # (Auto) 200 (0-450) /uL Baso # (Auto) 100 (0-100) /uL PT 13.0 H (9.4-12.5) SECONDS INR 1.1 (0.9-1.3) Sodium 137 (137-145) mmol/L Potassium 4.1 (3.4-5.1) mmol/L Chloride 103 (98-107) mmol/L Carbon Dioxide 27 (22-32) mmol/L BUN 15 (9-20) mg/dL Creatinine 0.84 (0.66-1.25) mg/dL Estimated GFR > 60 (>60) mL/min BUN/Creatinine Ratio 17.9 (6-22) Glucose 106 H (70-100) mg/dL Calcium 9.4 (8.4-10.2) mg/dL Total Bilirubin 0.9 (0.2-1.3) mg/dL AST 41 (17-59) IU/L ALT 34 (<50) IU/L Alkaline Phosphatase 67 (38-126) U/L Total Protein 7.6 (6.3-8.2) g/dL Albumin 4.4 (3.5-5.0) g/dL Globulin 3.2 (1.7-4.1) g/dL Albumin/Globulin Ratio 1.4 (1.0-2.8) Lipase 92 (23-300) U/L Imaging Data CTA - brain/neck: Radiologist's Impression: PROCEDURE: CT ANGIO HEAD AND NECK INDICATIONS: Left eye visual disturbance, h/o ocular htn, now dizzy padron TECHNIQUE: After the administration of intravenous contrast, 1 mm thick sections acquired from the aortic arch through the [place]. 3-dimensional vkbttfk-baztdklno-wdbxtrwbbg (MIP) and/or volume rendering reformats were acquired of the central intracranial vasculature and neck separately. For radiation dose reduction, the following was used: automated exposure control, adjustment of mA and/or kV according to patient size. COMPARISON: None. FINDINGS: Image quality: Diagnostic. BRAIN: CSF spaces: Ventricles are normal in size and shape. Basal cisterns are patent. No extra-axial fluid collections. Brain: No significant abnormality of the brain can be seen. Skull and face: Calvarium and facial bones appear intact, without suspicious lesions. In this patient with this given history, scrutiny is given to the orbits. No significant abnormality of the orbits or globes can be seen. Sinuses: Sinuses and mastoids are clear. HEAD CT ANGIOGRAPHY: Anterior circulation: Intracranial internal carotid arteries are normal in size and flow. The flow within the paired anterior cerebral arteries is normal and symmetric. The flow within the middle cerebral arteries is normal and symmetric. The anterior communicating artery is seen. No aneurysms are seen. The superior ophthalmic arteries appear unremarkable and symmetric. Posterior circulation: Note is made of bilateral type origins of the posterior cerebral arteries, with an associated diminutive basilar artery. The flow within the posterior cerebral arteries is normal and symmetric. The distal vertebral arteries are overall small in size, yet otherwise unremarkable. No aneurysms are seen. NECK CT ANGIOGRAPHY: Carotid system: The great vessels demonstrate a conventional anatomy as they arise from the aortic arch. The origins of the common carotid arteries appear patent. The common carotid arteries demonstrate normal caliber and courses. The bifurcation regions are both widely patent. The internal carotid arteries demonstrate normal calibers and courses. Posterior circulation: The origins of the vertebral arteries both appear widely patent. The more superior extracranial portions of both vertebral arteries also demonstrate normal courses and calibers. They join to form a normal appearing basilar artery. Soft tissues: Visualized neck soft tissues demonstrate no suspicious abnormalities. Bones: No suspicious bony lesions. Visualized cervical spine appears normally aligned. IMPRESSION: No significant intracranial arterial abnormality is seen. No significant abnormality of the superior ophthalmic arteries can be seen. No significant abnormality of the globes or orbits can be seen. Within the arteries of the neck, no hemodynamically significant stenosis can be seen. Any quantitative measurements of stenosis were performed using NASCET criteria. Dictated by: Derian Strange M.D. on 03/19/2023 at 13:15 MDM Narrative Medical decision making narrative: Patient 42-year-old male history probable glaucoma presents today with visual changes would seem to be getting worse. Visual acuity has been checked pressures in both eyes checked twice and are stable. CT angio has been reviewed and within normal limits. Blood work reviewed and also within limits. Bedside ultrasound done by myself does show any obvious vitreous humor detachment or retinal. [id number] Dr. Infante cyber security manager returned phone call. She agrees with ED workup and is happy to follow up on Tuesday. No further evaluation needed. Discharge Plan Departure Patient Disposition: Home Clinical Impression: Alteration in vision, Glaucoma Instructions: DI for Visual Field Disturbances Activity Restrictions/Additional Instructions: *You have been diagnosed with visual changes *What to do: At this time we spoke with Dr. Grimm. She is happy to see you on Tuesday. So please call her office. *Continue to take medications as directed Continue drops medication as prescribed *Follow up with your primary care provider in 2-3 days or call [phone] *Return to ER if you should have loss of vision worsening vision changes or any new, worsening or concerning symptoms Prescriptions: No Action epinephrine [EpiPen 2-Gonsalo] 0.3 mg/0.3 mL auto-injector 0.3 mg IM .COMPLEX Qty: 2 1RF Rx Instructions: 0.3 mg IM once for allergic reaction; lisinopril 10 mg tablet 10 mg PO QDAY Qty: 90 2RF aspirin [Adult Aspirin Regimen] 81 mg tablet,delayed release (DR/EC) 81 mg PO DAILY wglxgmsz-uro-aoark-vit K-lycop [One-A-Day Men's Multivitamin] 400-20-300 mcg tablet 1 tab PO DAILY Combigan 0.2-0.5 % drops 1 drp EYE-BOTH BID latanoprost 0.005 % drops 1 drp EYE-BOTH ONCE PM Referrals: Andrade James MD [Primary Care Provider] - Stand Alone Forms: Patient Portal/API
[2023-03-19] MEDS: PROPARACAINE 0.5% OPHTH SOL 1 DROPS EYE-BOTH (15:35)
--- NOTE | 2023-03-19 15:46 | PC.NURSE ---
1500: Pt denies any new vision changes at this time. Denies any pain.
[2023-03-19 16:38] VITALS: BP 139/88; PULSE 90; RESP 20; O2SAT 99
== END 2023-03-19 16:40 | disposition home or self-care (01) ==
PROVIDERS: Emergency Provider Emergency Medicine; PCP Internal Medicine
DX: H54.7 Unspecified visual loss (principal); H40.9 Unspecified glaucoma
CPT/HCPCS: 36415; 70496; 70498; 80053; 83690; 85025; 85610; 99284; Q9967

== ENCOUNTER → 2024-04-27 08:08 | Outpatient (CLI) | payer OTHER, SELFPAY ==
[2024-04-27 09:15] LABS: Add Manual Diff / Slide Review NO; Basophils Absolute Auto 0 /uL (0-100); Basophils Percent Auto 0.5 % (0-2); Eosinophils Absolute Auto 300 /uL (0-450); Eosinophils Percent Auto 5.9 % (2-4); Hematocrit 46.3 % (41-53); Hemoglobin 15.9 g/dL (13.5-17.5); Lymphocytes Absolute Auto 1400 /uL (1100-4500); Lymphocytes Percent Auto 27.3 % (25-40); Mean Corpuscular HGB Conc 34.2 % (30-36); Mean Corpuscular Hemoglobin 31.6 PG (26-34); Mean Corpuscular Volume 92.4 fL (80-100); Monocytes Absolute Auto 500 /uL (0-900); Monocytes Percent Auto 10.6 % (3-14); Neutrophils Absolute Auto 2800 /uL (1500-7000); Neutrophils Percent Auto 55.7 % (50-75); Platelet Count 149 X10^3/uL (150-400); Red Blood Cell Count 5.01 X10^6/uL (4.5-5.9); Red Cell Distribution Width 12.6 % (11.6-14.8); White Blood Cell Count 5.1 X10^3/uL (4.5-11.0)
[2024-04-27 09:38] LABS: Alanine Aminotransferase 52 IU/L (<50); Albumin 4.5 g/dL (3.5-5.0); Albumin Globulin Ratio 1.6 (1.0-2.8); Alkaline Phosphatase 64 U/L (38-126); Aspartate Aminotransferase 56 IU/L (17-59); BUN Creatinine Ratio 15.1 (6-22); Bilirubin Total 0.6 mg/dL (0.2-1.3); Blood Urea Nitrogen 14 mg/dL (9-20); Calcium 9.6 mg/dL (8.4-10.2); Carbon Dioxide 28 mmol/L (22-32); Chloride 102 mmol/L (98-107); Estimated Glomerular Filt Rate > 60 mL/min (>60); Globulin 2.8 g/dL (1.7-4.1); Glucose 90 mg/dL (70-100); HEMOLYSIS < 15 (0-50); Potassium 3.9 mmol/L (3.4-5.1); Sodium 137 mmol/L (137-145); Total Protein 7.3 g/dL (6.3-8.2)
== END ==
PROVIDERS: PCP Internal Medicine; Referring Provider Internal Medicine; Visit Provider Internal Medicine
DX: I10 Essential (primary) hypertension (principal); D69.6 Thrombocytopenia, unspecified
CPT/HCPCS: 36415; 80053; 85025

== ENCOUNTER → 2025-02-26 07:22 | Outpatient (CLI) | payer OTHER, SELFPAY ==
[2025-02-26 07:57] LABS: Add Manual Diff / Slide Review NO; Hematocrit 46.9 % (41-53); Hemoglobin 16.1 g/dL (13.5-17.5); Lymphocytes Absolute Auto 1200 /uL (1100-4500); Mean Corpuscular HGB Conc 34.4 % (30-36); Mean Corpuscular Hemoglobin 30.1 PG (26-34); Mean Corpuscular Volume 87.5 fL (80-100); Platelet Count 134 X10^3/uL (150-400)
[2025-02-26 09:18] LABS: Alanine Aminotransferase 35 IU/L (<50); Albumin 4.2 g/dL (3.5-5.0); Albumin Globulin Ratio 1.4 (1.0-2.8); Alkaline Phosphatase 60 U/L (38-126); Blood Urea Nitrogen 16 mg/dL (9-20); Calcium 8.9 mg/dL (8.4-10.2); Carbon Dioxide 27 mmol/L (22-32); Chloride 105 mmol/L (98-107); Cholesterol 228 mg/dL (140-199); Estimated Glomerular Filt Rate > 60 mL/min (>60); Globulin 2.9 g/dL (1.7-4.1); Glucose 101 mg/dL (70-99); HDL Cholesterol 56 mg/dL (40-60); HEMOLYSIS < 15 (0-50); Potassium 4.5 mmol/L (3.4-5.1); Sodium 139 mmol/L (137-145); Total Protein 7.1 g/dL (6.3-8.2); Triglycerides 283 mg/dL (35-150)
[2025-02-26 09:22] LABS: TSH w/ Reflex to FT4 1.86 uIU/mL (0.47-4.68)
== END ==
PROVIDERS: PCP Internal Medicine; Referring Provider Internal Medicine; Visit Provider Internal Medicine
DX: Z13.220 Encounter for screening for lipoid disorders (principal); Z13.6 Encounter for screening for cardiovascular disorders; I10 Essential (primary) hypertension; D69.6 Thrombocytopenia, unspecified; E03.9 Hypothyroidism, unspecified
CPT/HCPCS: 36415; 80053; 80061; 84443; 85025

== ENCOUNTER → 2025-03-07 11:59 | Outpatient (CLI) | payer OTHER, SELFPAY | LOC: CAR 11:59 | PROVIDERS: PCP Internal Medicine; Referring Provider Internal Medicine; Visit Provider Internal Medicine | DX: R00.2 Palpitations (principal) | CPT/HCPCS: 93246 ==